=== PATIENT | female | born 1960 | race Caucasian/White ===

== ENCOUNTER 2024-06-02 08:53 | Outpatient (CLI) | payer MEDICARE, BC ==
[2024-06-02 11:17] LABS: #Basophils 0.07 10x3/uL (0.0-0.2); %Eosinophils 6.3 % (0.0-10.0); %Lymphocytes 30.4 % (21.0-51.0); %Monocytes 6.8 % (0.0-10.0); %Neutrophils 55.1 % (42.0-75.0); Hematocrit 36.9 % (36.0-47.0); Hemoglobin 11.7 g/dL (12.0-16.0); Mean Corpuscular HGB CONC 31.7 g/dL (32.0-36.0); Mean Corpuscular Volume 97.9 fL (78.0-98.0); Mean Platelet Volume 9.7 fL (7.4-10.4); Platelet Count 353 10x3/uL (130-400); RBC Distribution Width 12.7 % (11.5-14.5); Red Blood Cell (RBC) Count 3.77 mill/uL (4.20-5.40)
[2024-06-02 11:27] LABS: INR-International Normal Ratio 0.9; Prothrombin Time 12.6 sec (12.0-14.7)
[2024-06-02 11:28] LABS: PTT 35.4 sec (22.9-36.1)
[2024-06-02 11:35] LABS: Anion Gap 11 mmol/L (10-20); BUN (Urea Nitrogen) 15 mg/dL (9.8-20.1); Calc. Creatinine Clearance 0 mL/min (70-130); Calcium 9.4 mg/dL (7.8-10.44); Carbon Dioxide 29 mmol/L (23-31); Chloride 102 mmol/L (98-107); Estimated GFR 79; Glucose 101 mg/dL (80-115); Sodium 138 mmol/L (136-145)
== END 2024-06-02 08:54 | disposition home or self-care (01) ==
LOC: LABBT 08:53
PROVIDERS: ATTEND Urology
DX: Z01.818 Encounter for other preprocedural examination (principal); R07.9 Chest pain, unspecified; N20.0 Calculus of kidney; N32.81 Overactive bladder; G89.4 Chronic pain syndrome
CPT/HCPCS: 71046; 80048; 85025; 85610; 85730; 86850; 86900; 86901; 93005; 93010

== ENCOUNTER 2024-06-10 06:56 | Day surgery (SDC) | payer MEDICARE, BC ==
[2024-06-02 09:54] VITALS: BMI 28.9
[2024-06-10] MEDS ORDERED: cefTRIAXone (ROCEPHIN) 1 GM VIAL ONE (08:45)
[2024-06-10] MEDS ORDERED: Sodium Chloride 0.9% 100 ML ONE (08:46)
[2024-06-10] MEDS ORDERED: Iopamidol 30 ML ONE (09:04)
[2024-06-10] MEDS ORDERED: PROPOFOL 20 ML ONE (09:13)
[2024-06-10] MEDS ORDERED: fentaNYL PF 100 MCG/2 ML SYRINGE ONE (09:13)
[2024-06-10] MEDS ORDERED: Rocuronium Bromide 10 MG/ML (10ML VIAL) ONE (09:14)
[2024-06-10] MEDS ORDERED: Lidocaine 1% PF 5 ML VIAL ONE (09:14)
[2024-06-10] MEDS ORDERED: Bupivacaine 0.25% HCL 30 ML VIAL ONE (10:58)
[2024-06-10] MEDS ORDERED: EPINEPHrine 1 MG/ML VIAL ONE (10:59)
[2024-06-10] MEDS ORDERED: SUGAMMADEX SODIUM 200 MG/2 ML VIAL ONE ×2 (11:27→11:46)
[2024-06-10] MEDS ORDERED: Ondansetron PF 4 MG/2 ML Vial ONE (11:28)
[2024-06-10] MEDS ORDERED: Dexamethasone 4 mg/ml Vial ONE (11:28)
[2024-06-10] MEDS ORDERED: Oxybutynin 5 MG TAB ONE (12:10)
[2024-06-10] MEDS ORDERED: Phenazopyridine HCl 100 MG TAB ONE (12:10)
[2024-06-10] MEDS ORDERED: fentaNYL 50 mcg/mL 1 mL Vial ONE (12:35)
[2024-06-10] MEDS ORDERED: HYDROcodone/Acetaminophen 5/325 mg Tablet ONE (13:22)
== END 2024-06-10 13:50 | disposition home or self-care (01) ==
LOC: SDC 06:56
PROVIDERS: ATTEND Urology
PROC: 0TC70ZZ Extirpation of Matter from Left Ureter, Open Approach (ICD-10-PCS; principal; 2024-06-10)
DX: N20.0 Calculus of kidney (principal); N32.81 Overactive bladder; G89.4 Chronic pain syndrome; Z79.899 Other long term (current) drug therapy; F41.9 Anxiety disorder, unspecified; M19.90 Unspecified osteoarthritis, unspecified site; E07.9 Disorder of thyroid, unspecified; Z90.89 Acquired absence of other organs; Z98.51 Tubal ligation status; Z90.710 Acquired absence of both cervix and uterus; Z98.890 Other specified postprocedural states; Z87.891 Personal history of nicotine dependence; Z88.5 Allergy status to narcotic agent; Z88.2 Allergy status to sulfonamides
CPT/HCPCS: 50081; 74420; 82365; 86850; 86900; 86901; C1769; C2617; J0171; J0665; J0696; J1100; J2405; J2704; J3010; Q9967; 88300